=== PATIENT | male | born 1985 | race Caucasian/White ===

== ENCOUNTER 2019-04-20 17:20 | Emergency (ER) | payer BC, OTHER ==
[~2019-04-20] VITALS: Ht 175.3 cm; Wt 79.5 kg
[~2019-04-20 17:20] MED LIST: BACI3.5O2 LEFTEYE
[2019-04-20] MEDS ORDERED: morphine 4 MG/ML inj SYRINge IV ONE (17:30)
[2019-04-20] MEDS ORDERED: ondansetron/PF 4mg/2ml inj IV ONE (17:35)
[2019-04-20] MEDS ORDERED: fentaNYL/PF 50MCG/1 ML 2ML syringe IV ONE (17:40)
[2019-04-20 18:45] VITALS: BP 156/96
[2019-04-20] MEDS ORDERED: HYDR-4353 PO (19:05)
== END 2019-04-20 19:17 | disposition home or self-care (01) ==
LOC: ER 17:21
DX: S82.242A Displaced spiral fracture of shaft of left tibia, initial encounter for closed fracture (principal); S82.442A Displaced spiral fracture of shaft of left fibula, initial encounter for closed fracture; Z91.048 Other nonmedicinal substance allergy status; Z79.899 Other long term (current) drug therapy; V00.328A Other snow-ski accident, initial encounter; Y93.89 Activity, other specified; Y92.89 Other specified places as the place of occurrence of the external cause; Y99.8 Other external cause status
CPT/HCPCS: 29505; 73590; 96374; 96375; 99284; J2270; J2405; J3010

== ENCOUNTER 2019-04-25 10:04 | Day surgery (SDC) | payer BC ==
[~2019-04-25] VITALS: Ht 175.3 cm; Wt 81.6 kg
[2019-04-25] VITALS (12 sets, daily range): BP systolic 150–181; BP diastolic 74–101
[~2019-04-25 10:04] MED LIST changes: +HYDR-4353 PO
[2019-04-25] MEDS ORDERED: ringers solution, lacted 1,000 ML IV SCH ×2 (11:03→14:21)
[2019-04-25] MEDS ORDERED: famotidine 20mg tablet PO ONE (11:03)
[2019-04-25] MEDS ORDERED: cefazolin/dext.iso 2gm/100ml 100 ML IV ONE (11:05)
[2019-04-25 11:46] LABS: BASOPHILS # (AUTO) 0.1 X10'3 (0-0.2); BASOPHILS % (AUTO) 0.8 % (0-1); EOSINOPHILS # (AUTO) 0.2 X10'3 (0-0.9); EOSINOPHILS % (AUTO) 2.1 % (0-6); LYMPHOCYTES # (AUTO) 1.6 X10'3 (1.1-4.8); LYMPHOCYTES % (AUTO) 19.6 % (21-51); MEAN CORPUSCULAR HEMOGLOBIN 31.2 PG (27.0-31.0); MEAN CORPUSCULAR HGB CONC 35.3 g/dL (33.0-36.5); MEAN CORPUSCULAR VOLUME 88.3 FL (78-98); MEAN PLATELET VOLUME 7.1 FL (7.4-10.4); MONOCYTES # (AUTO) 0.7 X10'3 (0-0.9); MONOCYTES % (AUTO) 9.1 % (2-12); NEUTROPHILS # (AUTO) 5.6 X10'3 (1.8-7.7); NEUTROPHILS % (AUTO) 68.4 % (42-75); PRE OP HEMATOCRIT 43.5 % (42.0-52.0); PRE OP HEMOGLOBIN 15.3 g/dL (14.0-17.9); PRE OP PLATELET COUNT 271 X10'3 (140-440); RED BLOOD COUNT 4.92 X10'6 (4.70-6.10); RED CELL DISTRIBUTION WIDTH 12.4 % (11.5-14.5)
[2019-04-25] MEDS ORDERED: HYDR-4353 PO (12:22)
[2019-04-25] MEDS ORDERED: ceFAZolin 1000mg inj ONE (13:12)
[2019-04-25] MEDS ORDERED: acetaminophen 1000 MG/100ml vial IV ONE (13:38)
[2019-04-25] MEDS ORDERED: cefazolin/dext.iso 2gm/100ml BAG IV ONE (13:38)
[2019-04-25] MEDS ORDERED: sevoflurane 250ml liquid IH ONE (13:38)
[2019-04-25] MEDS ORDERED: midazolam 2 mg/2 ml injection ONE (13:44)
[2019-04-25] MEDS ORDERED: fentaNYL /PF 50mcg/ml 5ml ampule ONE (13:46)
[2019-04-25] MEDS ORDERED: ondansetron/PF 4mg/2ml inj ONE (14:10)
[2019-04-25] MEDS ORDERED: dexamethasone sod phosphate 4mg/ml inj. ONE (14:10)
[2019-04-25] MEDS ORDERED: ondansetron/PF 4mg/2ml inj IV PRN (14:25)
[2019-04-25] MEDS ORDERED: hydrALAZINE 20mg/ml inj. IV PRN (14:25)
[2019-04-25] MEDS ORDERED: labetalol 20mg/4ml (5mg/ml) syringe IV PRN (14:25)
[2019-04-25] MEDS ORDERED: fentaNYL/PF 50MCG/1 ML 2ML syringe IV PRN ×2 (14:25)
[2019-04-25] MEDS ORDERED: morphine 2 MG/ML inj. syringe IV PRN (14:25)
[2019-04-25] MEDS ORDERED: BUPIVAcaine/PF 2.5 mg/ml (0.25%) 30ml vial ONE (15:00)
[2019-04-25] MEDS ORDERED: morphine 10mg/ml inj. ONE (15:10)
--- NOTE | 2019-04-25 15:20 | NUR ---
Received from OR via [facility], accompanied by Anesthesiologist DR HARPER and report given by Anesthesiolgist. AWAKENING. VSS. IV #20 PATENT TO LEFT HAND LR @ 100MLS/HR. LEFT LE ELEVATED WITH ICE TO LOWER LEG. LEFT ANKLE/FOOT WITH POSTERIOR SPLINT AND ACEWRAPS CDI. LEFT TOES PINK/WARM WITH GOOD RUBBER TIRE AND TUBES SUPERVISOR. ABLE TO WIGGLE LEFT TOES WITH GOOD SENSATION. DENIES PAIN OR NAUSEA.
[2019-04-25] MEDS: morphine 4 MG/ML inj SYRINge IV PRN ×2 (15:47→15:57)
[2019-04-25] MEDS ORDERED: ketorolac trometh. 30mg/ml inj. IV ONE (16:05)
[2019-04-25] MEDS ORDERED: HYDROcodone/acetaminophen 10/325mg tab PO ONE (16:15)
--- NOTE | 2019-04-25 17:20 | NUR ---
VSS. STATES ADEQUATE PAIN RELIEF. CSM'C TO LEFT TOES WNL. LEFT LE JULIETH WRAPS CDI. PT STATES READINESS FOR DC HOME. DC INSTRUCTIONS REVIEWED WITH PT AND (VIA PHONE) WHO VERBALIZE UNDERSTANDING. IV DC'D WITH CANNULA INTACT AND PRESSURE DSG APPLIED. DC VIA WC WITH ALL BELONGINGS TO PRIVATE AUTO WITH FAMILY MEMBER TO RECEIVE. Addendum: 04/25/19 at 1738 by Malina Stein RN Amended: Links added.
== END 2019-04-25 17:20 | disposition home or self-care (01) ==
LOC: PRE-OP 10:04 → PAS 17:20
PROVIDERS: ATTEND Orthopaedic Surgery Hand Surgery
DX: S82.292A Other fracture of shaft of left tibia, initial encounter for closed fracture (principal); S82.492A Other fracture of shaft of left fibula, initial encounter for closed fracture; Z98.890 Other specified postprocedural states; Z87.891 Personal history of nicotine dependence; Z88.8 Allergy status to other drugs, medicaments and biological substances; Z79.899 Other long term (current) drug therapy; X58.XXXA Exposure to other specified factors, initial encounter; Y93.23 Activity, snow (alpine) (downhill) skiing, snowboarding, sledding, tobogganing and snow tubing; Y92.89 Other specified places as the place of occurrence of the external cause; Y99.8 Other external cause status
CPT/HCPCS: 27759; 36415; 73590; 76000; 82948; 85025; A6222; A6223; C1713; J0131; J0690; J1100; J1885; J2250; J2270; J2405; J3010; J3490; A4215; A4618; A6449; A7000; J7120